=== PATIENT | male | born 1985 | race Asian ===

== ENCOUNTER 2020-12-12 10:59 | Emergency (ER) | payer BC, OTHER ==
[~2020-12-12] VITALS: Ht 162.6 cm; Wt 58.1 kg
[2020-12-12 11:47] LABS: Basophils # (auto) 0.1 10 ^3/uL (0-0.2); Eosinophils # (auto) 0.1 10 ^3/uL (0-0.8); Eosinophils % (auto) 1.3 % (0.0-7.0); Hemoglobin 8.2 g/dL (13.5-17.5); Lymphocytes # (auto) 1.1 10 ^3/uL (0.4-5.4); Monocytes # (auto) 0.5 10 ^3/uL (0-1.3); Nucleated Red Blood Cells % 0.2 %; White Blood Cell 5.6 10^3/uL (4.4-10.8)
[2020-12-12 11:50] VITALS: BP 128/79
[2020-12-12 11:51] LABS: Albumin 4.6 g/dL (3.4-5.0); Potassium 3.8 mmol/L (3.5-5.1)
[2020-12-12 11:55] LABS: INR 1.16 (0.9-1.15)
[2020-12-12 11:57] LABS: Basophils % (auto) 1.4 % (0.0-2.0); Hematocrit 29.1 % (41.0-53.0); Lymphocytes % (auto) 19.5 % (10.0-50.0); Mean Corpuscular Hgb Conc. 28.1 g/dL (32.0-36.0); Mean Corpuscular Volume 71.1 fL (80.0-100.0); Monocytes % (auto) 8.7 % (0.0-12.0); Neutrophils # (auto) 3.9 10 ^3/uL (1.6-8.6); Neutrophils % (auto) 69.1 % (37.0-80.0); Red Blood Cells 4.09 10^6/uL (4.5-5.90); Red Cell Distribution Width 30.2 % (11.8-14.3)
[2020-12-12 12:06] LABS: BUN/Creatinine Ratio 19.7; Bilirubin, Total 8.2 mg/dL (0.2-1.0); Total Protein 7.7 g/dL (6.4-8.2)
== END 2020-12-12 12:28 | disposition home or self-care (01) ==
LOC: ER 10:59
DX: D64.9 Anemia, unspecified (principal); D56.9 Thalassemia, unspecified
CPT/HCPCS: 36415; 80053; 85025; 85610; 85730; 86850; 86900; 86901